=== PATIENT | male | born 1950 | race Caucasian/White ===

== ENCOUNTER → 2016-12-28 | Outpatient (CLI) | payer OTHER ==
--- NOTE | 2016-12-28 12:10 | DI ---
EXAM: CHEST, PA LATERAL HISTORY: ITS.REASON: DIAGNOSTIC IMAGING LOCATION OF DICTATION: [facility] COMPARISON: No prior studies available for comparison. FINDINGS: The heart appears upper limits of normal size. The trachea is midline is no evidence of mediastinal widening. The pulmonary vascularity is normal. There are mild increased interstitial markings that appear chronic but no acute consolidating infiltrates are seen and the costophrenic angles are clear. The bony thorax shows early degenerative changes. There is artifact from the patient's clothing over the left axilla. IMPRESSION: 1. Mild chronic lung changes are evident but no acute cardiopulmonary process is identified. .
--- NOTE | 2016-12-28 12:15 | DI ---
EXAM: FOOT RIGHT 3 VIEWS HISTORY: ITS.REASON: DIAGNOSTIC IMAGING LOCATION OF DICTATION: [facility] Center TECHNIQUE: 3 views of the right foot were obtained. ENCOUNTER: Initial COMPARISON: No prior studies available for comparison. The osseous structures of the right foot are mildly demineralized. Anatomic alignment is maintained at the articular surfaces. There are [id number] degenerative changes in the interphalangeal joint regions and at the first MTP joint. There are early degenerative changes noted in the hindfoot region at the talonavicular articulation. There is an old fracture deformity of the fifth proximal phalanx and the second metatarsal. No acute fractures are identified. Tiny dorsal and plantar calcaneal heel spurs are noted. There is mild soft tissue swelling over the mid and hindfoot. There are mild edematous changes seen in the pre-Achilles tendon fat pad. IMPRESSION: 1. There is mild soft tissue swelling about the right foot but no acute bony trauma is identified. 2. Degenerative changes as described. 3. Old fracture deformities of the second metatarsal and fifth proximal phalanx. 4. Tiny dorsal and plantar calcaneal heel spurs. 5. Mild edematous changes in the pre-Achilles tendon fat pad which can indicate be seen with Achilles tendinopathy or tendinitis. Correlate clinically. .
--- NOTE | 2016-12-29 23:04 | ECHOF ---
ECHOCARDIOGRAM REPORT DATE OF PROCEDURE December 28, 2016 This is a two-dimensional echo with spectral Doppler, color-flow and M-mode. It was obtained in a patient with coronary artery disease and atrial fibrillation. Left atrium is dilated. Left ventricle end-diastolic dimension is at the upper limits of normal. Left ventricular wall thickness is normal. LV systolic function is normal with ejection fraction of 56%. Right atrium is normal. Right ventricle is normal. Aortic root dimension is normal. Mitral valve is morphologically normal with mild mitral regurgitation. Aortic valve shows fibrocalcific changes with no stenosis. Trace of aortic insufficiency is present. Tricuspid valve shows trace of tricuspid regurgitation with normal estimated pulmonary artery systolic pressure of 25. Pulmonary valve shows trace of pulmonary insufficiency. There is no pericardial effusion. IMPRESSION 1. Normal LV systolic function with ejection fraction of 56%. 2. Left atrial dilation. 3. Aortic sclerosis with trace of aortic insufficiency. 4. Mild mitral regurgitation. 5. Trace of pulmonary insufficiency. 6. Trace of tricuspid regurgitation with normal estimated pulmonary artery systolic pressure of 25. MTDD
== END ==
LOC: IMA 10:57
DX: Z02.9 Encounter for administrative examinations, unspecified (principal)
CPT/HCPCS: 93306